=== PATIENT | female | born 1980 | race Two or more races ===

== ENCOUNTER 2018-02-13 16:39 | Outpatient (REF) | payer BC, SELFPAY ==
--- NOTE | 2018-02-13 12:20 | PAPFT_PTH ---
PATIENT: Mellisa Deleon LOC: [facility] U#:[id number] AGE/SX: 37/F ROOM: RE02/13/[address]: Pauly Barkley : 1980 BED: DIS: 02/13/2018 SPEC #: [id number] RECD: 02/16/18 12:43 STATUS: ZENIA REQ #: [id number] ASIM: 02/13/18 12:[address]: Pauly Barkley DEPT: [facility] Cytology RECD BY: Ludy Fish Tissues: 1 - CX/ENDOCX FOR PAP SMEARS Procedures: PAP THIN PREP/UVM Screening HPV DNA PROBE Comments: [id number]
== END 2018-02-13 16:59 ==
LOC: NCHCN 16:39
PROVIDERS: PCP Nurse Practitioner Family; Visit Provider Nurse Practitioner Family
DX: Z12.4 Encounter for screening for malignant neoplasm of cervix (principal); Z11.51 Encounter for screening for human papillomavirus (HPV)
CPT/HCPCS: 88142; 87624

== ENCOUNTER 2018-06-17 08:35 | Outpatient (CLI) | payer BC, SELFPAY ==
--- NOTE | 2018-06-17 08:31 | DI.RAD_ITS ---
SYMPTOM/DIAGNOSIS: LT AND RT KNEE PAIN LEFT KNEE: No bony or joint abnormality involving the left knee is apparent. MERCHANT PROJECTIONS BILATERAL KNEES: No bony or joint abnormality involving the patella or patellofemoral joint is noted involving the right or left knee. RIGHT KNEE: No bony or joint abnormality is identified.
== END 2018-06-17 08:55 ==
PROVIDERS: PCP Nurse Practitioner Family; Visit Provider Physician Assistant
DX: M25.561 Pain in right knee (principal); M25.562 Pain in left knee
CPT/HCPCS: 73562; 73565

== ENCOUNTER 2020-02-03 15:22 | Outpatient (CLI) | payer BC, SELFPAY | END 2020-02-03 15:42 | PROVIDERS: PCP Nurse Practitioner Family; Visit Provider Obstetrics & Gynecology | DX: O20.0 Threatened abortion (principal) | CPT/HCPCS: 36415; 86850; 86900; 86901; 90384 ==

== ENCOUNTER 2020-02-14 04:51 | Outpatient (CLI) | payer BC, SELFPAY ==
[2020-02-14 10:38] LABS: HCG Quant, Pregnancy 15 mIU/mL (1-3)
== END 2020-02-14 05:11 ==
PROVIDERS: PCP Nurse Practitioner Family; Visit Provider Obstetrics & Gynecology
DX: O03.9 Complete or unspecified spontaneous abortion without complication (principal)
CPT/HCPCS: 36415; 84702

== ENCOUNTER 2020-02-18 00:44 | Outpatient (CLI) | payer BC, SELFPAY ==
[2020-02-18 10:41] LABS: HCG Quant, Pregnancy 8 mIU/mL (1-3)
== END 2020-02-18 01:04 ==
PROVIDERS: PCP Nurse Practitioner Family; Visit Provider Obstetrics & Gynecology
DX: O03.9 Complete or unspecified spontaneous abortion without complication (principal)
CPT/HCPCS: 36415; 84702

== ENCOUNTER 2020-02-25 01:55 | Outpatient (CLI) | payer BC, SELFPAY ==
[2020-02-25 16:33] LABS: HCG Quant, Pregnancy 2 mIU/mL (1-3)
== END 2020-02-25 02:15 ==
PROVIDERS: PCP Nurse Practitioner Family; Visit Provider Obstetrics & Gynecology
DX: O03.9 Complete or unspecified spontaneous abortion without complication (principal)
CPT/HCPCS: 36415; 84702

== ENCOUNTER 2020-05-16 07:18 | Outpatient (CLI) | payer BC, SELFPAY ==
[2020-05-16 10:37] LABS: HCT 37.1 % (36.0-46.0); HGB 12.4 g/dL (11.2-15.7); MCH 29.4 pg (27.0-33.0); MCHC 33.4 % (32.0-36.0); MCV 87.9 fL (80-95); Platelet Count 193 10^3/uL (130-400); RBC 4.22 10^6/uL (3.93-5.22); RDW 11.5 % (11.7-14.6); RDW-SD 37.1 fL; WBC 6.12 10^3/uL (4.4-10.8)
[2020-05-16 11:58] LABS: Anion Gap 10.4 mmol/L (3-11); CO2 25.6 mmol/L (21.0-32.0); Chloride 103 mmol/L (98-107); Potassium 3.7 mmol/L (3.5-5.1); Sodium 139 mmol/L (136-145)
[2020-05-17 15:19] LABS: COVID-19 RT-PCR UVMMC Result Negative (Negative)
== END 2020-05-16 07:19 | disposition home or self-care (01) ==
LOC: LBO 07:22
PROVIDERS: PCP Nurse Practitioner Family; Visit Provider Obstetrics & Gynecology Gynecology
DX: O20.0 Threatened abortion (principal); O26.891 Other specified pregnancy related conditions, first trimester; Z20.822 Contact with and (suspected) exposure to COVID-19; Z01.818 Encounter for other preprocedural examination; Z01.812 Encounter for preprocedural laboratory examination
CPT/HCPCS: 36415; 80051; 85027; 86850; 86900; 86901; 90384; U0003

== ENCOUNTER 2020-05-19 11:01 | Day surgery (SDC) | payer BC, SELFPAY ==
[2020-05-19 11:23] VITALS: BP 121/70; PULSE 78; RESP 16; TEMP 35.6; O2SAT 100
[2020-05-19] MEDS: Lactated Ringers 1,000 ML 125 ML IV (11:48)
[2020-05-19] MEDS: DOXYCYCLINE 100 MG in Normal Saline 100 ML IVPB (14:24)
--- NOTE | 2020-05-19 14:50 | POCSPONT_PTH ---
PATIENT: Mellisa Deleon LOC: [facility] U#:[id number] AGE/SX: 40/F ROOM: RE05/19/[address]: Angelina Pretty DO : 1980 BED: DIS: 05/19/2020 SPEC #: [id number] RECD: 05/19/20 17:24 STATUS: ZENIA REQ #: [id number] ASIM: 05/19/20 14:[address]: Angelina Pretty DEPT: Surgical Specimen RECD BY: Ludy Fish ENTERED: 05/19/20 17:29 SP TYPE: POCSPANNALISE FINLEY DR: Pauly Barkley Tissues: 1 - ,SPONTANEOUS CHROMOSOME ANALYSIS PROFILE Procedures: GROSS AND MICRO LEVEL 4 CHROMOSOME ANALYSIS 15-20 CELLS CHROMOSOME ANALYSIS TISSUE CULTURE Comments: [id number] (CYTOGENETICS - [id number])
--- NOTE | 2020-05-19 15:07 | W.PM.OP ---
Date of service: 05/19/20 Time of Service: 15:07 Operative Note Operative Note DATE OF PROCEDURE: 05/19/20 PRE-OP DIAGNOSIS: Missed POST-OP DIAGNOSIS: same PROCEDURE: Dilation curettage suction SURGEON: Angelina Pretty ANESTHESIA: MAC ESTIMATED BLOOD LOSS: 50 PATHOLOGY: other (Products of conception) COMPLICATIONS: None Patient was transported to: PACU Patient's condition: stable Indications: Missed Findings: Severely anteflexed uterus, moderate products of conception Procedure Description: Patient is a 40-year-old female with a second spontaneous miscarriage. She had a confirmed intrauterine initially with cardiac activity and subsequent ultrasound confirmed cardiac activity. Risk benefits alternatives of surgical removal of uterine contents were explained to the patient in full informed consent was obtained. She does wish genetic testing for karyotype for the tissue to aid in diagnosis and guide further conceptions. She was taken operating suite with an IV running where she is resting dorsal supine position. She had general anesthesia administered via monitored anesthesia care. She is then placed in the modified dorsolithotomy position in yellowfin stirrups and prepped and draped in the usual sterile fashion. Exam under anesthesia revealed a uterus that was approximately 6 to 8 weeks size and mobile and midline. A speculum was placed in the posterior vaginal vault and single-tooth tenaculum used to grasp the anterior lip of the cervix. Cervical os dilated the point that an 8 Faroese suction curette could be passed with ease. With gentle suction curettage there was return of moderate products of conception. Subsequent to this a sharp uterine curettage was performed and the coarse cry of the uterus could be felt in all quadrants. A second pass of the suction curette was undertaken in order to clear the remainder of the contents. At this point speculum was removed and single-tooth tenaculum was removed. There was 1 area that was not hemostatic at the puncture site from the tenaculum which was cauterized with silver nitrate and found to be hemostatic. At this point she was returned to dorsal supine position and awoke from anesthesia with ease. She was taken recovery room in stable condition. EBL: 50 cc Complications: None apparent Findings: Anteverted uterus, moderate products of conception. Pathology: Products of conception for gross, micro, and karyotype.
[2020-05-19] MEDS: Silver Nitrate Stick 1 EACH (15:08)
[2020-05-19 15:57] VITALS: BP 100/62; PULSE 63; RESP 18; TEMP 36.4; O2SAT 100
== END 2020-05-19 16:30 | disposition home or self-care (01) ==
PROVIDERS: PCP Nurse Practitioner Family; Visit Provider Obstetrics & Gynecology
PROC: (CPT 59841; principal; 2020-05-19 12:00)
DX: O02.1 Missed abortion (principal); Z98.890 Other specified postprocedural states
CPT/HCPCS: 59812; 88305; 88233; 88262; J1885; J2001; J2405

== ENCOUNTER 2021-01-02 14:11 | Outpatient (CLI) | payer BC, SELFPAY ==
--- NOTE | 2021-01-02 14:00 | DI.RAD_ITS ---
Exam(s) XR KNEE RT 3V AP,LAT,LUISITO EXAM: XR KNEE RT 3V AP,LAT,LUISITO CLINICAL HISTORY: right knee pain. TECHNIQUE: 2D digital imaging was performed of the right knee. Four views obtained. AP, lateral and Merchant views were obtained. COMPARISON: No exams were available for comparison FINDINGS: BONES: No acute fracture is present. No bony destructive lesion is seen. JOINTS: The knee is normally aligned. No joint effusion is seen. SOFT TISSUE: Normal. IMPRESSION: Unremarkable radiographs of the right knee. DATA REPOSITORY: RADIATION DOSE DELIVERED:
== END 2021-01-02 14:12 | disposition home or self-care (01) ==
LOC: DIORS 14:11
PROVIDERS: PCP Nurse Practitioner Family; Referring Provider Nurse Practitioner Family; Visit Provider Physician Assistant
DX: M22.8X1 Other disorders of patella, right knee (principal); M25.561 Pain in right knee
CPT/HCPCS: 73562

== ENCOUNTER 2022-02-18 13:32 | Outpatient (REF) | payer BC, SELFPAY ==
[2022-02-18 15:21] LABS: HCG Quant, Pregnancy 29 mIU/mL (1-3)
== END 2022-02-18 13:33 | disposition home or self-care (01) ==
LOC: NCHCN 13:32
PROVIDERS: PCP Nurse Practitioner Family; Visit Provider Nurse Practitioner Family
DX: Z33.1 Pregnant state, incidental (principal)
CPT/HCPCS: 84702

== ENCOUNTER 2022-02-21 03:17 | Outpatient (CLI) | payer BC, SELFPAY ==
[2022-02-21 13:55] LABS: HCG Quant, Pregnancy 57 mIU/mL (1-3)
== END 2022-02-21 03:18 | disposition home or self-care (01) ==
LOC: LBO 03:17
PROVIDERS: PCP Nurse Practitioner Family; Visit Provider Nurse Practitioner Family
DX: O20.9 Hemorrhage in early pregnancy, unspecified (principal); Z33.1 Pregnant state, incidental
CPT/HCPCS: 36415; 86850; 86900; 86901; 84702

== ENCOUNTER 2022-02-25 03:05 | Outpatient (CLI) | payer BC, SELFPAY ==
[2022-02-25 14:38] LABS: HCG Quant, Pregnancy 5 mIU/mL (1-3)
== END 2022-02-25 03:06 | disposition home or self-care (01) ==
PROVIDERS: PCP Nurse Practitioner Family
DX: O20.8 Other hemorrhage in early pregnancy (principal)
CPT/HCPCS: 36415; 84702

== ENCOUNTER 2022-03-06 03:44 | Outpatient (CLI) | payer BC, SELFPAY ==
[2022-03-06 13:43] LABS: HCG Quant, Pregnancy < 1 mIU/mL (1-3)
== END 2022-03-06 03:45 | disposition home or self-care (01) ==
PROVIDERS: PCP Nurse Practitioner Family; Visit Provider Obstetrics & Gynecology
DX: O20.8 Other hemorrhage in early pregnancy (principal); Z3A.00 Weeks of gestation of pregnancy not specified
CPT/HCPCS: 36415; 86850; 86900; 86901; 84702

== ENCOUNTER 2024-01-30 10:05 | Outpatient (CLI) | payer BC, SELFPAY ==
[2024-01-30 10:36] LABS: Abs Immature Grans 0.14 10^3/uL (0.0-0.06); Absolute Basophil Count 0.02 10^3/uL (0.0-0.2); Absolute Eosinophil Count 0.15 10^3/uL (0.0-0.7); Absolute Lymphocyte Count 1.89 10^3/uL (1.2-3.4); Absolute Monocyte Count 0.38 10^3/uL (0.1-0.8); Absolute Neutrophil Count 4.76 10^3/uL (1.2-6.7); Basophils % 0.3 %; HCT 41.4 % (36.0-46.0); HGB 13.5 g/dL (11.2-15.7); Immature Grans % 1.9 %; Lymphocytes % 25.7 %; MCH 28.8 pg (27.0-33.0); MCHC 32.6 % (32.0-36.0); MCV 89 fL (80-95); Monocytes % 5.2 %; Neutrophils % 64.9 %; Platelet Count 226 10^3/uL (130-400); RBC 4.68 10^6/uL (3.93-5.22); RDW-SD 38.5 fL; WBC 7.34 10^3/uL (4.4-10.8)
[2024-01-30 10:57] LABS: Anion Gap 7.6 mmol/L (3-11); BUN 13 mg/dL (7-18); CO2 26.4 mmol/L (21.0-32.0); CREATININE 0.7 mg/dL (0.55-1.02); Calcium 9.4 mg/dL (8.5-10.1); Chloride 107 mmol/L (98-107); Estimated GFR 109.98 (mL/min/1.73m2); Glucose 89 mg/dL (74-106); HCG Quant, Pregnancy 439 mIU/mL (1-3); Potassium 3.8 mmol/L (3.5-5.1); Sodium 141 mmol/L (136-145)
[2024-02-02 14:59] LABS: Beta 2 GP1 Ab IgG <9.4 SGU; Beta 2 GP1 Ab IgM <9.4 SMU
[2024-02-03 09:54] LABS: LA Cascade Summary (See Note)
== END 2024-01-30 10:06 | disposition home or self-care (01) ==
LOC: LBO 10:05
PROVIDERS: PCP Nurse Practitioner Family; Visit Provider Family Medicine
DX: R94.6 Abnormal results of thyroid function studies (principal); Z33.1 Pregnant state, incidental; N96 Recurrent pregnancy loss
CPT/HCPCS: 36415; 80048; 85613; 85732; 86146; 87116; 84443; 84702; 85025

== ENCOUNTER 2024-02-02 21:27 | Outpatient (REF) | payer BC, SELFPAY ==
--- NOTE | 2024-02-02 14:15 | PAPFT_PTH ---
PATIENT: Mellisa Deleon LOC: [facility] U#:[id number] AGE/SX: 43/F ROOM: RE02/02/[address]: Moon Hartmann : 1980 BED: DIS: 02/02/2024 SPEC #: [id number] RECD: 02/03/24 13:12 STATUS: ZENIA REQ #: [id number] ASIM: 02/02/24 14:[address]: Moon Hartmann DEPT: [facility] Cytology RECD BY: Ludy Fish ENTERED: 02/03/24 13:13 SP TYPE: PAPFT OTHR DR: Pauly Barkley Tissues: 1 - CX/ENDOCX FOR PAP SMEARS Procedures: PAP THIN PREP/UVM Screening HPV DNA PROBE Comments: [id number] (HPV 16 & 18/45)
== END 2024-02-02 21:28 | disposition home or self-care (01) ==
LOC: NCHCN 21:27
PROVIDERS: PCP Nurse Practitioner Family; Visit Provider Nurse Practitioner Family
DX: Z11.51 Encounter for screening for human papillomavirus (HPV) (principal); Z01.419 Encounter for gynecological examination (general) (routine) without abnormal findings
CPT/HCPCS: 88142; 87624

== ENCOUNTER 2024-02-27 12:54 | Outpatient (REF) | payer BC, SELFPAY ==
[2024-02-27 14:37] LABS: Bilirubin Negative (Negative); Blood Negative (Negative); Clarity Cloudy (Clear); Glucose Negative (Negative); Ketones Negative (Negative); Leukocyte Esterase Negative (Negative); Nitrite Negative (Negative); Urobilinogen 0.2 mg/dL (Up to 0.2); pH 8.5 (5-8)
[2024-02-27 15:14] LABS: COMMENT (LAB VIEW ONLY) 93.86 mg/dL; PROTEIN 13.5 mg/dL; Prot/Crea Ur Ratio 0.14
[2024-03-01 12:00] LABS: Chlamydia Result Negative (Negative); GC Result Negative (Negative)
== END 2024-02-27 12:55 | disposition home or self-care (01) ==
LOC: NCHCN 12:54
PROVIDERS: PCP Nurse Practitioner Family; Visit Provider Family Medicine
DX: Z33.1 Pregnant state, incidental (principal); O09.521 Supervision of elderly multigravida, first trimester
CPT/HCPCS: 87491; 87591; 81003; 82565; 84156; 87086

== ENCOUNTER 2024-02-27 14:14 | Outpatient (CLI) | payer BC, SELFPAY ==
[2024-02-27 15:08] LABS: Hemoglobin A1C 4.7 % (<5.7)
[2024-02-27 15:51] LABS: ALT 27 U/L (14-59); AST 13 U/L (15-37); Albumin 3.8 g/dL (3.4-5.0); Alkaline Phosphatase 79 U/L (46-116); Bilirubin, Direct 0.1 mg/dL (0.0-0.2); Bilirubin, Total 0.29 mg/dL (0.2-1.0); LDH 151 U/L (81-234); Total Protein 7.8 g/dL (6.4-8.2)
[2024-02-27 22:18] LABS: Hepatitis B Surface Ag Negative (Negative)
[2024-02-27 22:44] LABS: HIV-1/2 Ag & Ab Screen Negative (Negative)
[2024-02-27 22:50] LABS: Hepatitis C Ab w Rflx HCV PCR Negative (Negative)
[2024-03-01 09:44] LABS: Syphilis Serology (RPR) Negative (Negative)
[2024-03-01 09:46] LABS: Haptoglobin 134 mg/dL (32-197)
[2024-03-01 09:50] LABS: Rubella IgG Ab (UVM) Positive (See Note)
== END 2024-02-27 14:15 | disposition home or self-care (01) ==
LOC: LBO 14:15
PROVIDERS: PCP Nurse Practitioner Family; Visit Provider Family Medicine
DX: Z33.1 Pregnant state, incidental (principal); O09.521 Supervision of elderly multigravida, first trimester
CPT/HCPCS: 36415; 80076; 86803; 86850; 86900; 86901; 87340; 87389; 83010; 83036; 83615; 86592; 86762

== ENCOUNTER 2024-07-06 16:26 | Outpatient (CLI) | payer BC, SELFPAY ==
[2024-07-06 12:40] LABS: HCT 32.6 % (36.0-46.0); HGB 11.3 g/dL (11.2-15.7); MCH 29.9 pg (27.0-33.0); MCHC 34.7 % (32.0-36.0); MCV 86 fL (80-95); MPV 9.7 fL (8.0-11.0); Platelet Count 184 10^3/uL (130-400); RBC 3.78 10^6/uL (3.93-5.22); RDW-SD 40.3 fL; WBC 10.71 10^3/uL (4.4-10.8)
[2024-07-06 12:51] LABS: Glucose,1 Hr (Glucola) 222 mg/dL (80-140)
== END 2024-07-06 16:27 | disposition home or self-care (01) ==
LOC: LBO 16:28
PROVIDERS: PCP Nurse Practitioner Family; Visit Provider Family Medicine
DX: Z33.1 Pregnant state, incidental (principal)
CPT/HCPCS: 36415; 82950; 85027; 86850; 86900; 86901

== ENCOUNTER 2024-07-09 13:13 | Outpatient (REF) | payer BC, SELFPAY ==
[2024-07-09 22:50] LABS: COMMENT (LAB VIEW ONLY) 62.43 mg/dL; PROTEIN 18.1 mg/dL; Prot/Crea Ur Ratio 0.28
== END 2024-07-09 13:14 | disposition home or self-care (01) ==
LOC: NCHCN 13:13
PROVIDERS: PCP Nurse Practitioner Family; Visit Provider Family Medicine
DX: R80.9 Proteinuria, unspecified (principal); R82.79 Other abnormal findings on microbiological examination of urine
CPT/HCPCS: 82565; 84156; 87086

== ENCOUNTER 2024-07-13 02:06 | Outpatient (CLI) | payer BC, SELFPAY | END 2024-07-13 02:07 | disposition home or self-care (01) | PROVIDERS: PCP Nurse Practitioner Family; Visit Provider Obstetrics & Gynecology | DX: O09.521 Supervision of elderly multigravida, first trimester (principal); O26.891 Other specified pregnancy related conditions, first trimester; Z67.91 Unspecified blood type, Rh negative | CPT/HCPCS: 36415; 86850; 86900; 86901; 90384 ==

== ENCOUNTER 2024-07-29 01:08 | Outpatient (CLI) | payer BC, SELFPAY ==
--- NOTE | 2024-07-29 | DI.US_ITS ---
Exam(s) US OB VENITA UMBILICAL ARTERY EXAM: US OB VENITA UMBILICAL ARTERY CLINICAL HISTORY: SYMMETRICAL GROWTH RESTRICTION, SLOW INTRAUTERINE GROWTH, P05.9. TECHNIQUE: Transabdominal obstetrical ultrasound was performed. COMPARISON: No exams were available for comparison FINDINGS: There is a single viable intrauterine gestation with cardiac activity identified-142 bpm. Fetu s is presently in breech position. See separate dictation for biophysical profile today. Amniotic Fluid Index is within normal limits, measuring 17.81 cm. Fetus is approximately 30 weeks gestational age by dates. UMBILICAL ARTERY READINGS: Proximal() mid level DISTAL(placental) %ile PULSATILITY INDEX: 0.79 0.69 0.67 5% RESISTIVE INDEX: 0.59 0.45 0.51 5 % S/D RATIO: 2.4 1.8 2.0 5% IMPRESSION: 1. Single viable intrauterine gestation with VENITA =17.81 cm, within normal limits. 2. Umbilical artery readings are as above. DATA REPOSITORY:
--- NOTE | 2024-07-29 | DI.US_ITS ---
Exam(s) US OB BIOPHYSICAL PROFILE EXAM: US OB BIOPHYSICAL PROFILE CLINICAL HISTORY: SYMMETRICAL GROWTH RESTRICTION, P05.9, SLOW INTRAUTERINE GROWTH. TECHNIQUE: Transabdominal obstetrical ultrasound was performed. COMPARISON: US US OB VENITA UMBILICAL ARTERY from 07/29/2024 FINDINGS: FINDINGS: Single viable intrauterine gestation in breech position. Placenta is posterior-fundal grade 2 with n o evidence of placenta previa. Dating parameters places at approximately 28 weeks and 3 days gestational age implying ALBERTINA of 10/18/2024. BPD equals 28 weeks and 3 days HC equals 28 weeks and 1 day AC equals 27 weeks and 4 days FL equals 29 weeks and 5 days Estimated weight is 1226 grams-pounds, 11 ounces. Fetus is less than 3rd percentile on Hadlock scale BREATHING MOVEMENTS: 2 GROSS MOVEMENTS: 2 TONE: 2 AMNIOTIC FLUID VOLUME: 2 VENITA = 17.8 cm FHR= 142 bpm IMPRESSION: Biophysical profile is 8/8, with no points deducted. Dating parameters places at 28 weeks and 3 days implying ALBERTINA of 10/18/2024. Fetus is at le ss than 3rd percentile DATA REPOSITORY:
== END 2024-07-29 01:28 ==
LOC: DI 01:08
PROVIDERS: PCP Nurse Practitioner Family; Visit Provider Family Medicine
DX: O36.5931 Maternal care for other known or suspected poor fetal growth, third trimester, fetus 1 (principal); Z3A.30 30 weeks gestation of pregnancy
CPT/HCPCS: 76815; 76816; 76820; 76819

== ENCOUNTER 2024-08-06 00:40 | Outpatient (CLI) | payer BC, SELFPAY ==
--- NOTE | 2024-08-06 | DI.US_ITS ---
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 COMPARISON: US US OB VENITA UMBILICAL ARTERY from 07/29/2024 US US OB BIOPHYSICAL PROFILE from 07/29/2024 TECHNIQUE: Transabdominal obstetrical ultrasound performed. FINDINGS: Umbilical artery Doppler measurements performed. Proximal mid placental Pulsatility index: 1.9 0.99 0.63 Resistive index: 0.69 0.65 0.48 S/D ratio: 3.3 2.9 1.9 IMPRESSION: The umbilical artery Doppler artery measurements are within the expected range. DATA REPOSITORY:
== END 2024-08-06 01:00 ==
LOC: DI 00:40
PROVIDERS: PCP Nurse Practitioner Family; Visit Provider Family Medicine
DX: E72.12 Methylenetetrahydrofolate reductase deficiency (principal); Z34.83 Encounter for supervision of other normal pregnancy, third trimester
CPT/HCPCS: 76816; 76820

== ENCOUNTER 2024-08-13 00:32 | Outpatient (CLI) | payer BC, SELFPAY ==
--- NOTE | 2024-08-13 | DI.US_ITS ---
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 TECHNIQUE: Transabdominal obstetrical ultrasound performed. COMPARISON: US US OB BIOPHYSICAL PROFILE from 07/29/2024 US US OB VENITA UMBILICAL ARTERY from 08/06/2024 FINDINGS:: Number of fetuses: 1 position: Breech, spine anterior Placental location: Posterior, grade 1-2, no evidence of previa. BIOMETRIC DATA: BPD: 75, 30+ 0 HC: 277, 30+ 2 AC: 259, 30+ 0 FL: 61, 31+3 EFW: 1591, 3.4%, Composite Age: 30+ 3 weeks ALBERTINA: 19 October 2024 Heart Rate: 142 Amniotic fluid index: 11.3. Visually, amount of fluid is within normal limits. IMPRESSION: size is below the expected range by approximately 2 weeks. weight is at the 3rd percenti le. This is similar to the previous exam. DATA REPOSITORY:
== END 2024-08-13 00:52 ==
LOC: DI 00:32
PROVIDERS: PCP Nurse Practitioner Family; Visit Provider Family Medicine
DX: E72.12 Methylenetetrahydrofolate reductase deficiency (principal); Z34.83 Encounter for supervision of other normal pregnancy, third trimester; Z3A.30 30 weeks gestation of pregnancy
CPT/HCPCS: 76816

== ENCOUNTER 2024-08-19 15:00 | Outpatient (REF) | payer BC, SELFPAY ==
[2024-08-19 16:53] LABS: PROTEIN 19.1 mg/dL; Prot/Crea Ur Ratio 0.15
== END 2024-08-19 15:01 | disposition home or self-care (01) ==
LOC: NCHCN 15:00
PROVIDERS: PCP Nurse Practitioner Family; Visit Provider Family Medicine
DX: R80.9 Proteinuria, unspecified (principal)
CPT/HCPCS: 82565; 84156

== ENCOUNTER 2024-08-20 00:08 | Outpatient (CLI) | payer BC, SELFPAY ==
--- NOTE | 2024-08-20 | DI.US_ITS ---
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 TECHNIQUE: Transabdominal obstetrical ultrasound was performed. COMPARISON: US US OB VENITA WEIGHT from 08/13/2024 FINDINGS: There is a single viable intrauterine gestation with cardiac activity identified-146 BPM station all age is apparently 33 weeks and 4 days UMBILICAL ARTERY READINGS: Pulsatility index readings: 0.85 proximal 0.71 mid 0.57 distal Resistive index readings: 0.59 proximal 0.53 mid 0.43 distal S/D ratio: 2.4 proximal 2.1 mid 1.8 distal IMPRESSION: 1. Single viable intrauterine gestation with heart rate 146 bpm 2. Umbilical artery readings are listed above and are within normal limits, between 5th and 50th perc entiles. DATA REPOSITORY:
== END 2024-08-20 00:28 ==
LOC: DI 00:09
PROVIDERS: PCP Nurse Practitioner Family; Visit Provider Family Medicine
DX: E72.12 Methylenetetrahydrofolate reductase deficiency (principal); Z34.83 Encounter for supervision of other normal pregnancy, third trimester; Z3A.33 33 weeks gestation of pregnancy
CPT/HCPCS: 76816; 76820

== ENCOUNTER 2024-08-27 00:37 | Outpatient (CLI) | payer BC, SELFPAY ==
--- NOTE | 2024-08-27 | DI.US_ITS ---
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 TECHNIQUE: Transabdominal obstetrical ultrasound performed. COMPARISON: US US OB VENITA WEIGHT from 08/13/2024 US US OB VENITA UMBILICAL ARTERY from 08/20/2024 FINDINGS:: Number of fetuses: 1 position: BREECH Placental location: POSTERIOR No evidence of previa. BIOMETRIC DATA: BPD: 7.86 cm, 31+4 weeks HC: 28.96 cm, 31+ 6 weeks AC: 27.17 cm, 31+2 weeks FL: 6.3 cm, 32+4 weeks EFW: 1831.05 g, 3 % Composite Age: 31+ 6 weeks ALBERTINA: October 29 Heart Rate: 158 bpm Amniotic fluid index: 13.65 cm. Visually, amount of fluid is within normal limits. Pulsatility index: 0.77 proximal, 0.66 mid, 0.84 distal Resistive index: 0.56 proximal, 0.49 mid, 0.60 distal S/D ratio: 2.3 proximal, 2.0 mid, 2.5 distal. IMPRESSION: size and weight are below the expected range. Umbilical artery measurements are within the normal range, between 5 and 50 percentile. DATA REPOSITORY:
== END 2024-08-27 00:57 ==
LOC: DI 00:39
PROVIDERS: PCP Nurse Practitioner Family; Visit Provider Family Medicine
DX: E72.12 Methylenetetrahydrofolate reductase deficiency (principal); Z34.83 Encounter for supervision of other normal pregnancy, third trimester; Z3A.31 31 weeks gestation of pregnancy
CPT/HCPCS: 76816; 76820

== ENCOUNTER 2024-09-02 02:36 | Outpatient (CLI) | payer BC, SELFPAY ==
--- NOTE | 2024-09-02 | DI.US_ITS ---
Exam(s) US OB VENITA WEIGHT EXAM: US OB VENITA WEIGHT CLINICAL HISTORY: METHYLENETETRALHYDROFOLATE REDUCTASE DEFICIENCY. TECHNIQUE: Transabdominal obstetrical ultrasound was performed. COMPARISON: US US OB VENITA UMBILICAL ARTERY from 08/27/2024 FINDINGS: Apparently 35 weeks: There is a single viable intrauterine gestation with cardiac activity identified-138 bpm The fetus is presently in trans position head towards maternal left side. Amniotic fluid: Not measured Placental location: The placenta is posterior grade 1,with no evidence of placenta previa. UMBILICAL ARTERY DOPPLER: See printed sheet with results of pulsatility index, resistive index, and S/D ratios All indices are below the 95th percentile IMPRESSION:: Viable 3rd trimester gestation, as described above. The umbilical artery Doppler indices are below the 95th percentile. DATA REPOSITORY:
== END 2024-09-02 02:56 ==
LOC: DI 02:36
PROVIDERS: PCP Nurse Practitioner Family; Visit Provider Student in an Organized Health Care Education/Training Program
DX: Z34.83 Encounter for supervision of other normal pregnancy, third trimester (principal); Z3A.38 38 weeks gestation of pregnancy; E72.12 Methylenetetrahydrofolate reductase deficiency
CPT/HCPCS: 76816

== ENCOUNTER 2024-09-10 00:38 | Outpatient (CLI) | payer BC, SELFPAY ==
--- NOTE | 2024-09-10 | DI.US_ITS ---
Exam(s) US OB VENITA WEIGHT EXAM: US OB VENITA WEIGHT CLINICAL HISTORY: E72.12,Z34.83 Methylenetetrahydrofolate reductase deficiency,Normal pregnan. TECHNIQUE: Transabdominal obstetrical ultrasound performed. COMPARISON: US US OB VENITA WEIGHT from 09/02/2024 FINDINGS: Number of fetuses: 1 position: CEPHALIC Placental location: There is a grade 2 posterior placenta. No evidence of previa. Heart Rate: 162bpm Umbilical artery Doppler: See the printed sheet with result of pulsatility index, resistive index and S/D ratios. All indices are below the 95th percentile. IMPRESSION: 1. Single live intrauterine gestation as above. 2. All umbilical artery Doppler indices are below the 95th percentile. DATA REPOSITORY:
== END 2024-09-10 00:58 ==
LOC: DI 00:39
PROVIDERS: PCP Nurse Practitioner Family; Visit Provider Family Medicine
DX: E72.12 Methylenetetrahydrofolate reductase deficiency (principal); Z34.83 Encounter for supervision of other normal pregnancy, third trimester
CPT/HCPCS: 76816

== ENCOUNTER 2024-12-28 16:02 | Outpatient (REF) | payer BC, SELFPAY ==
[2024-12-28 18:02] LABS: Hemoglobin A1C 4.5 % (<5.7)
== END 2024-12-28 16:03 | disposition home or self-care (01) ==
LOC: NCHCN 16:02
PROVIDERS: PCP Nurse Practitioner Family; Visit Provider Family Medicine
DX: Z86.32 Personal history of gestational diabetes (principal); Z09 Encounter for follow-up examination after completed treatment for conditions other than malignant neoplasm
CPT/HCPCS: 83036

== ENCOUNTER 2025-02-11 12:19 | Outpatient (REF) | payer BC, SELFPAY ==
[2025-02-11 21:08] LABS: Cholesterol 219 mg/dL (<200); HDL Cholesterol 53 mg/dL (>or=50)
== END 2025-02-11 12:20 | disposition home or self-care (01) ==
LOC: NCHCN 12:19
PROVIDERS: PCP Nurse Practitioner Family; Visit Provider Family Medicine
DX: Z13.220 Encounter for screening for lipoid disorders (principal)
CPT/HCPCS: 80061

== ENCOUNTER → 2025-02-28 02:16 | Outpatient (CLI) | payer BC, SELFPAY ==
--- NOTE | 2025-02-28 | DI.MAMMO_ITS ---
Exam(s) MAMMO SCREENING EXAM: MAMMO SCREENING CLINICAL HISTORY: Z12.31 Screening,baseline TECHNIQUE: Bilateral full field digital CC and MLO mammographic images were obtained with 3D tomosynthesis and utilizing computer aided detection (CAD). COMPARISON: This is a baseline examination. There are no priors for comparison. FINDINGS: Masses/Architectural Distortion: No suspicious masses or areas of architectural distortion are present. Microcalcifications: No suspicious pleomorphic-type are seen. Skin Thickening/Nipple Retraction: None. IMPRESSION: 1. There are no findings to suggest malignancy noted at this time. 2. Unless there is more urgent need, screening mammography is recommended, as per [place] [employer] guidelines. BI-RADS Category 1 - Negative Breast Density - Category C - The breast are heterogeneously dense, which may obscure small masses. Breast density Category C or D implies that the patient has dense breast tissue. Dense breast tissue can make it harder to find cancer on a mammogram. Dense breast tissue is also associated with an increased risk of breast cancer. This information about the result of the mammogram report was provided to the patient to raise their awareness. Use this report when you speak with the patient about their risks for breast cancer, which includes their family history. At that time, you may recommend additional screening tests (Ultrasound or MRI) as these tests may add significant information. A negative radiographic report should not delay biopsy if a dominant or clinically suspicious mass is present. Up to ten percent of cancers are not identified on mammography. A negative report may reinforce clinical impression. Adenosis and dense breasts may obscure an underlying neoplasm. False positive reports average 6 to 10%. Patient will receive a letter notifying them of these results.
== END ==
LOC: DI 02:16
PROVIDERS: PCP Nurse Practitioner Family; Visit Provider Family Medicine
DX: Z12.31 Encounter for screening mammogram for malignant neoplasm of breast (principal)
CPT/HCPCS: 77063; 77067